=== PATIENT | female | born 1980 | race African-American/Black ===

== ENCOUNTER 2024-03-06 22:11 | Emergency (ER) | payer SELFPAY ==
[~2024-03-06] VITALS: Ht 162.6 cm; Wt 57.0 kg
[2024-03-06 22:15] VITALS: BP 154/84; PULSE 87; RESP 18; TEMP 98.1; O2SAT 99
== END 2024-03-07 01:26 | disposition left against medical advice (07) ==
LOC: ER 22:11
DX: R04.0 Epistaxis (principal); Z53.21 Procedure and treatment not carried out due to patient leaving prior to being seen by health care provider